=== PATIENT | female | born 1980 | race Two or more races ===

== ENCOUNTER 2016-10-30 12:41 | Emergency (ER) | payer MEDICAID ==
[~2016-10-30] VITALS: Ht 157.5 cm; Wt 60.3 kg
[2016-10-30 15:27] LABS: CALCIUM 8.9 mg/dL (8.5-10.1); CARBON DIOXIDE 30.6 mmol/L (21-32); CHLORIDE SERUM 105 mmol/L (98-107); CREATININE SERUM 0.7 mg/dL (0.6-1.0); GFR1 > 60 mL/min; GLUCOSE SERUM 85 mg/dL (74-106); POTASSIUM SERUM 3.8 mmol/L (3.5-5.1); SODIUM SERUM 142 mmol/L (136-145)
[2016-10-30 15:33] LABS: ALBUMIN 3.5 g/dL (3.4-5.0); ALKALINE PHOSPHATASE 75 U/L (46-116); ALT/SGPT 23 U/L (14-59); AST/SGOT 15 U/L (15-37); BILIRUBIN TOTAL 0.78 mg/dL (0.20-1.00); LIPASE 185 IU/L (73-393); TOTAL PROTEIN, SERUM 6.8 g/dL (6.4-8.2)
[2016-10-30 15:37] LABS: BASOPHIL % 0.3 % (0-2); PLATELET COUNT 233 x10^3mcL (130-400); RED CELL DISTRIBUTION WIDTH 12.4 % (11.5-14.5)
[2016-10-30 16:12] VITALS: BP 103/70
== END 2016-10-30 16:12 | disposition home or self-care (01) ==
LOC: ED 12:41
PROVIDERS: Emergency Medicine
DX: R11.10 Vomiting, unspecified (principal); R19.7 Diarrhea, unspecified; R10.9 Unspecified abdominal pain
CPT/HCPCS: Q0162

== ENCOUNTER 2016-12-06 10:50 | Emergency (ER) | payer MEDICAID ==
[2016-12-06 14:54] VITALS: BP 117/78
== END 2016-12-06 14:54 | disposition home or self-care (01) ==
LOC: ED 10:50
DX: M54.31 Sciatica, right side (principal); M41.9 Scoliosis, unspecified; Z88.8 Allergy status to other drugs, medicaments and biological substances

== ENCOUNTER 2017-02-11 11:00 | Emergency (ER) | payer MEDICAID ==
[~2017-02-11] VITALS: Ht 157.5 cm; Wt 60.3 kg
[2017-02-11 12:49] LABS: BASOPHIL % 0.4 % (0-2); PLATELET COUNT 230 x10^3mcL (130-400); RED CELL DISTRIBUTION WIDTH 13.6 % (11.5-14.5)
[2017-02-11 13:00] LABS: microscopic required? NO
[2017-02-11 13:08] LABS: urine erythrocyte NEGATIVE (NEGATIVE)
[2017-02-11 13:15] LABS: CALCIUM 8.7 mg/dL (8.5-10.1); CARBON DIOXIDE 32.2 mmol/L (21-32); CHLORIDE SERUM 107 mmol/L (98-107); CREATININE SERUM 0.7 mg/dL (0.6-1.0); GFR1 > 60 mL/min; GLUCOSE SERUM 82 mg/dL (74-106); POTASSIUM SERUM 4.1 mmol/L (3.5-5.1); SODIUM SERUM 143 mmol/L (136-145)
[2017-02-11 13:18] LABS: ALBUMIN 3.4 g/dL (3.4-5.0); ALKALINE PHOSPHATASE 63 U/L (46-116); ALT/SGPT 15 U/L (14-59); AMYLASE 57 U/L (25-115); AST/SGOT 17 U/L (15-37); BILIRUBIN TOTAL 0.8 mg/dL (0.20-1.00); LIPASE 221 IU/L (73-393); TOTAL PROTEIN, SERUM 6.8 g/dL (6.4-8.2)
[2017-02-11 14:46] VITALS: BP 98/62
[2017-02-11 14:52] LABS: AMPHETAMINE QUAL UR NONE DETECTED (NEG <=1000)
== END 2017-02-11 15:39 | disposition home or self-care (01) ==
LOC: ED 11:00
PROVIDERS: Emergency Medicine
DX: K92.0 Hematemesis (principal); J45.909 Unspecified asthma, uncomplicated; Z88.5 Allergy status to narcotic agent; Z88.8 Allergy status to other drugs, medicaments and biological substances
CPT/HCPCS: G0480; J3490; J7030